=== PATIENT | male | born 1990 | race Caucasian/White ===

== ENCOUNTER 2016-12-04 17:17 | Emergency (ER) | payer MEDICAID ==
[2016-12-04 17:23] VITALS: BMI 24.3
[2016-12-04 17:26] VITALS: BP 101/69; PULSE 71; RESP 16; TEMP 98.3
--- NOTE | 2016-12-04 18:52 | US ---
HISTORY: right testicle s/p trauma TECHNIQUE: Realtime sonography through the scrotum with color and doppler flow. COMPARISON: None Available. FINDINGS: RIGHT TESTICLE: Measures 4.4 x 2.3 x 2.4 cm. Homogeneous echotexture. Blood flow is demonstrated. RIGHT EPIDIDYMIS: Epididymal head measures approximately 0.9 x 0.7 x 0.8 cm. LEFT TESTICLE: Measures 4.6 x 2.1 x 2.7 cm. Homogeneous echotexture. Blood flow is demonstrated. LEFT EPIDIDYMIS: Epididymal head measures approximately 0.9 x 0.8 x 0.7 cm. HYDROCELE: Bilateral small hydroceles. VARICOCELE: Bilateral varicoceles. OTHER FINDINGS: None. IMPRESSION: Bilateral small hydroceles. Bilateral varicoceles.
--- NOTE | 2016-12-04 19:09 | ED PDOC ---
Arrival/HPI - General Chief Complaint: Male Genitourinary Time Seen by Provider: 12/04/16 17:29 Historian: Patient - History of Present Illness Narrative History of Present Illness (Text): 12/04/16 19:12 26yo male present to ED with complaint of right testicle pain. States he was accidentally kicked on his right sided testicle yesterday while soccer. Came to ED secondary to the persistent pain. States pain is moderately achy. Denies nausea, vomiting, abdominal pain, fever, chills, any other complaint. Past Medical History - Provider Review Nursing Documentation Reviewed: Yes - Past History Past History: No Previous - Infectious Disease Hx of Infectious Diseases: None - Tetanus Immunization Tetanus Immunization: Unknown - Past Medical History Past Medical History: No Previous - Psychiatric Hx Psychophysiologic Disorder: No Hx Anxiety: No Hx Bipolar Disorder: No Hx Depression: No Hx Emotional Abuse: No Hx Hallucinations: No Hx Panic Disorder: No Hx Post Traumatic Stress Disorder: No Hx Psychosis: No Hx Physical Abuse: No Hx Schizophrenia: No Hx Sexual Abuse: No Hx Substance Use: No - Past Surgical History Past Surgical History: No Previous - Surgical History Other/Comment: nose sx 2005 - Anesthesia Hx Anesthesia: Yes Hx Anesthesia Reactions: No Hx Malignant Hyperthermia: No - Suicidal Assessment Feels Threatened In Home Enviroment: No Family/Social History - Physician Review Nursing Documentation Reviewed: Yes Family/Social History: Unknown Family HX Smoking Status: Current Some Days Smoker Hx Alcohol Use: No Hx Substance Use: No Hx Substance Use Treatment: No Allergies/Home Meds Allergies/Adverse Reactions: Allergies No Known Allergies Allergy (Verified 12/04/16 17:23) Home Medications: Home Meds Medication Instructions Recorded Confirmed Sheen-Min 1 tab PO DAILY 12/04/16 12/04/16 Review of Systems - Physician Review All systems were reviewed & negative as marked: Yes - Review of Systems Constitutional: Normal Eyes: Normal ENT: Normal Respiratory: Normal Cardiovascular: Normal Gastrointestinal: Normal Genitourinary Male: Other (Right testicle pain) Musculoskeletal: Normal Skin: Normal Neurological: Normal Endocrine: Normal Hemo/Lymphatic: Normal Psychiatric: Normal Physical Exam Vital Signs Reviewed: Yes Vital Signs Temp Pulse Resp BP Pulse Ox 12/04/16 17:23 98.3 F 71 16 101/69 96 Temperature: Afebrile Blood Pressure: Normal Pulse: Regular Respiratory Rate: Normal Appearance: Positive for: Well-Appearing, Non-Toxic, Comfortable Pain Distress: None Mental Status: Positive for: Alert and Oriented X 3 - Systems Exam Head: Present: Atraumatic, Normocephalic Pupils: Present: PERRL Extroacular Muscles: Present: EOMI Conjunctiva: Present: Normal Mouth: Present: Moist Mucous Membranes Neck: Present: Normal Range of Motion Respiratory/Chest: Present: Clear to Auscultation, Good Air Exchange. No: Respiratory Distress, Accessory Muscle Use Cardiovascular: Present: Regular Rate and Rhythm, Normal S1, S2. No: Murmurs Abdomen: Present: Normal Bowel Sounds. No: Tenderness, Distention, Peritoneal Signs Genitourinary Male: Present: Testicle Tenderness (Right testicle). No: Erythema , Testicle Swelling Back: Present: Normal Inspection Upper Extremity: Present: Normal Inspection. No: Cyanosis, Edema Lower Extremity: Present: Normal Inspection. No: Edema Neurological: Present: GCS=15, CN II-XII Intact, Speech Normal Skin: Present: Warm, Dry, Normal Color. No: Rashes Psychiatric: Present: Alert, Oriented x 3, Normal Insight, Normal Concentration Medical Decision Making ED Course and Treatment: 12/04/16 19:16 Testicle US - IMPRESSION: Bilateral small hydroceles. Bilateral varicoceles. PT was comfortable in ED. He was noted to be having conversation on phone smiling. US report was DW the pt. He was DC home with a rx of Ibuprofen and referred to a Urologist. TRT ED for any new or worsening symptoms. - RAD Interpretation Radiology Orders: 12/04/16 17:29 TESTES DUPLEX COMPLETE [US] Stat - Medication Orders Current Medication Orders: Discontinued Medications Ibuprofen (Motrin Tab) 600 mg PO STAT STA Stop: 12/04/16 17:33 Last Admin: 12/04/16 18:01 Dose: 600 mg Disposition/Present on Arrival - Present on Arrival Any Indicators Present on Arrival: No History of DVT/PE: No History of Uncontrolled Diabetes: No Urinary Catheter: No History of Decub. Ulcer: No History Surgical Site Infection Following: None - Disposition Have Diagnosis and Disposition been Completed?: Yes Diagnosis: Testicle pain Disposition: HOME/ ROUTINE Disposition Time: 19:10 Patient Plan: Discharge Condition: STABLE Discharge Instructions (ExitCare): Testicle Pain (ED) Additional Instructions: Follow up with your Doctor/Urologist Return to ED for any new or worsening symptoms Prescriptions: Ibuprofen [Motrin Tab] 600 mg PO Q6 #20 tab Referrals: David Griffith MD [Staff Provider] - Follow up with primary
[2016-12-04 19:14] VITALS: O2SAT 98
== END 2016-12-04 19:14 | disposition home or self-care (01) ==
LOC: ED 17:17
DX: N50.811 Right testicular pain (principal)

== ENCOUNTER 2017-11-21 22:45 | Emergency (ER) | payer MEDICAID, OTHER ==
[2017-11-21 22:45] VITALS: BMI 24.3
[2017-11-21 23:03] VITALS: BP 122/86; PULSE 63; RESP 18; TEMP 97.5; O2SAT 97
--- NOTE | 2017-11-21 23:17 | ED PDOC ---
Arrival/HPI - General Chief Complaint: Groin Pain Time Seen by Provider: 11/21/17 23:00 - History of Present Illness Narrative History of Present Illness (Text): 27 y/o M c no PMHx p/w L testicular pain x 2 weeks. Pain is intermittent, moderate in severity, worse when walking. Patient states he was accidentally kicked in the groin while playing soccer. Denies bleeding, abnormal discharge, swelling. Past Medical History - Past History Past History: No Previous - Infectious Disease Hx of Infectious Diseases: None - Tetanus Immunization Tetanus Immunization: Unknown - Past Medical History Past Medical History: No Previous - Psychiatric Hx Psychophysiologic Disorder: No Hx Anxiety: No Hx Bipolar Disorder: No Hx Depression: No Hx Emotional Abuse: No Hx Hallucinations: No Hx Panic Disorder: No Hx Post Traumatic Stress Disorder: No Hx Psychosis: No Hx Physical Abuse: No Hx Schizophrenia: No Hx Sexual Abuse: No Hx Substance Use: No - Past Surgical History Past Surgical History: No Previous - Surgical History Other/Comment: nose sx 2005 - Anesthesia Hx Anesthesia: Yes Hx Anesthesia Reactions: No Hx Malignant Hyperthermia: No - Suicidal Assessment Feels Threatened In Home Enviroment: No Family/Social History Family/Social History: No Known Family HX Smoking Status: Current Some Days Smoker Hx Alcohol Use: Yes Frequency of alcohol use: Socially Hx Substance Use: No Hx Substance Use Treatment: No Allergies/Home Meds Allergies/Adverse Reactions: Allergies No Known Allergies Allergy (Verified 12/04/16 17:23) Home Medications: Home Meds Medication Instructions Recorded Confirmed No Known Home Med 11/22/17 11/22/17 Review of Systems - Physician Review All systems were reviewed & negative as marked: Yes - Review of Systems Constitutional: absent: Fevers Gastrointestinal: absent: Vomiting Physical Exam - Physical Exam Narrative Physical Exam (Text): Gen: NAD Head: NC Eyes: No icterus ENT: MMM Neck: Supple Chest: No tenderness CV: Regular rate Resp: No accessory muscle use Abd: Soft, NT, ND : Penis without swelling or ecchymosis, no discharge. Bilateral testicles normal in size. L testicular tenderness, mild. Skin: No rash Neuro: Alert Extremities: No edema Vital Signs Temp Pulse Resp BP Pulse Ox 11/21/17 23:00 97.5 F L 63 18 122/86 97 Medical Decision Making ED Course and Treatment: Differential includes likely contusion vs unlikely torsion. Will US to evaluate for flow. Patient declined pain medication. US Scrotum EXAM DATE/TIME: 11/21/2017 11:13 PM Dictated and Authenticated by: Shanon Chang MD 11/22/2017 12:57 AM Eastern Time ([place] & [place]) IMPRESSION: No acute findings. - RAD Interpretation Radiology Orders: 11/21/17 23:13 TESTES DUPLEX COMPLETE [US] Stat Disposition/Present on Arrival - Present on Arrival Any Indicators Present on Arrival: No History of DVT/PE: No History of Uncontrolled Diabetes: No Urinary Catheter: No History of Decub. Ulcer: No History Surgical Site Infection Following: None - Disposition Have Diagnosis and Disposition been Completed?: Yes Diagnosis: Testicular pain, left Disposition: HOME/ ROUTINE Disposition Time: 01:00 Patient Plan: Discharge Condition: STABLE Discharge Instructions (ExitCare): Testicular Injury Referrals: Noah Napier MD [Primary Care Provider] - Follow up with primary Forms: [employer] (Ukrainian)
--- NOTE | 2017-11-22 00:57 | US ---
EXAM: US Scrotum EXAM DATE/TIME: 11/21/2017 11:13 PM CLINICAL HISTORY: 27 years old, male; Pain; Groin pain; Additional info: Struck in groin TECHNIQUE: Real-time ultrasound of the scrotum with color Doppler and image documentation. COMPARISON: US - TESTES DUPLEX COMPLETE 2016-12-04 18:22 FINDINGS: The right testicle measures 5 x 3 x 3 cm. The left testicle measures 5 x 2 x 3 cm. The testicles are homogeneous bilaterally. Symmetric color flow and arterial waveforms are demonstrated to the testicles bilaterally (no torsion). The epidiymis are normal bilaterally. There are small bilateral hydroceles similar to prior. IMPRESSION: No acute findings.
== END 2017-11-22 01:20 | disposition home or self-care (01) ==
LOC: ED 22:45
DX: N50.812 Left testicular pain (principal)

== ENCOUNTER 2018-05-13 12:34 | Emergency (ER) | payer MEDICAID ==
[2018-05-13 12:34] VITALS: BMI 24.3
[2018-05-13 12:40] VITALS: RESP 18
--- NOTE | 2018-05-13 13:10 | ED PDOC ---
Arrival/HPI - General Chief Complaint: Abdominal Pain Time Seen by Provider: 05/13/18 12:35 Historian: Patient - History of Present Illness Narrative History of Present Illness (Text): 05/13/18 13:02 Patient is a 28 year old male, with no significant past medical history, presents to the Emergency Department complaining of discomfort to his groin region for past "2-3 months". Patient states he was kicked in his testicles while playing soccer 3 months ago sustaining discomfort to the area and was evaluated in the Emergency Department the following day. He reports persistent intermittent pain in his upper inner thighs that radiates to his groin area for past several weeks. Denies new recent trauma. Denies testicular swelling or redness. Denies difficulty urinating. Denies hematuria. Denies swelling or masses. Denies abdominal pain or rash. Denies diarrhea or bloody stools. Denies upper abdominal apin. Patient informs worsening symptoms with running or playing soccer prompting him to present to the ED for evaluation. Time/Duration: < week Symptom Onset: Gradual Symptom Course: Unchanged Quality: Aching Activities at Onset: Light Context: Home Past Medical History - Provider Review Nursing Documentation Reviewed: Yes - Past History Past History: No Previous - Infectious Disease Hx of Infectious Diseases: None - Tetanus Immunization Tetanus Immunization: Unknown - Past Medical History Past Medical History: No Previous - Psychiatric Hx Psychophysiologic Disorder: No Hx Anxiety: No Hx Bipolar Disorder: No Hx Depression: No Hx Emotional Abuse: No Hx Hallucinations: No Hx Panic Disorder: No Hx Post Traumatic Stress Disorder: No Hx Psychosis: No Hx Physical Abuse: No Hx Schizophrenia: No Hx Sexual Abuse: No Hx Substance Use: No - Past Surgical History Past Surgical History: No Previous - Surgical History Other/Comment: nose sx 2005 - Anesthesia Hx Anesthesia: Yes Hx Anesthesia Reactions: No Hx Malignant Hyperthermia: No - Suicidal Assessment Feels Threatened In Home Enviroment: No Family/Social History - Physician Review Nursing Documentation Reviewed: Yes Family/Social History: No Known Family HX Smoking Status: Current Some Days Smoker Hx Alcohol Use: No Hx Substance Use: No Hx Substance Use Treatment: No Allergies/Home Meds Allergies/Adverse Reactions: Allergies No Known Allergies Allergy (Verified 05/13/18 12:41) Review of Systems - Review of Systems Constitutional: absent: Fevers Respiratory: absent: SOB, Cough Cardiovascular: absent: Chest Pain, [place] Gastrointestinal: absent: Abdominal Pain, Stool Changes, Constipation, Diarrhea, Nausea, Vomiting, Appetite Changes, Hematochezia, Hematemesis, Anorexia Genitourinary Male: Other (testicular discomfort). absent: Dysuria, Hematuria, Urinary Output Changes Musculoskeletal: absent: Back Pain, Neck Pain Skin: absent: Rash, Skin Lesions Neurological: absent: Headache, Dizziness, Focal Weakness Endocrine: absent: Polyuria Hemo/Lymphatic: absent: Easy Bleeding Psychiatric: absent: Anxiety, Depression Physical Exam - Physical Exam Narrative Physical Exam (Text): 05/13/18 13:13 Head: Atraumatic. Normocephalic. Eyes: PERRL. EOMI. Conjunctivae are not pale. ENT: Mucous membranes are moist and intact. Oropharynx is clear and symmetric. Neck: Supple. Full ROM. No JVD. No lymphadenopathy. Cardiovascular: Regular rate. Regular rhythm. No murmurs, rubs, or gallops. Distal pulses are 2+ and symmetric. Pulmonary/Chest: No evidence of respiratory distress. Clear to auscultation bilaterally. No wheezing, rales or rhonchi. Abdominal: Soft and non-distended. There is no tenderness. No rebound, guarding, or rigidity. No organomegaly. Good bowel sounds. No suprapubic pain. No inguinal masses or hernias palpated. Rectal: no gross bleeding noted Genitourinary: no testicular pain or masses palpated, positive cremaster reflex, no penile discharge or erythema Back: No CVA tenderness. No midline back tenderness. Extremities: No edema. No cyanosis. No clubbing. Full range of motion in all extremities. No calf tenderness. He has mild pain on palpation of left and right medial upper thigh with no rash or edema or erythema. Pain not reproduced with straight leg testing, but is reproducible with rotation externally of hips. Skin: Skin is warm and dry. No petechiae. No purpura. Neurological: Alert, awake, and oriented. No saddle anesthesia. Motor and sensory exam intact. Normal gait. Psychiatric: Good eye contact. Normal interaction, affect, and behavior. Vital Signs Reviewed: Yes Vital Signs Temp Pulse Resp BP Pulse Ox 05/13/18 12:39 97.6 F 84 18 116/72 98 Temperature: Afebrile Blood Pressure: Normal Pulse: Regular Respiratory Rate: Normal Appearance: Positive for: Well-Appearing, Non-Toxic, Comfortable Pain Distress: None Mental Status: Positive for: Alert and Oriented X 3 Medical Decision Making ED Course and Treatment: 05/13/18 13:13 Impression: 28 year old male presents to the Emergency Department complaining of groin discomfort. Plan: -- US of Testes -- Reassess and disposition Prior Visits: Notes and results from previous visits were reviewed. Progress Notes: On exam, patient with no palpable hernias, no palpable testicular pain. No rash. No neuro deficits. Denies abdominal pain. Denies urinary symptoms. Denies prior hx of STD. Denies penile discharge. EXAM IS NOT CONSISTENT WITH TORSION. Ultrasound reveals bilateral hydroceles, this was noted on prior ultrasounds. As he has no palpable pain, no neurovascular deficits, the patient will be discharged although instructed close follow-up with urologist. Ultrasound findings reviewed with patient in laymen's terms. 05/13/18 17:43 - RAD Interpretation Narrative RAD Interpretations (Text): 05/13/18 14:33 US of Testes reviewed by radiologist, shows: FINDINGS: RIGHT TESTICLE: Measures 4.7 x 2.2 x 3.0 cm. Normal echotexture and flow. RIGHT EPIDIDYMIS: Epididymal head measures 0.8 x 0.7 x 0.9 cm. Grossly unremarkable appearance with normal flow. LEFT TESTICLE: Measures 4.6 x 2.2 x 2.9 cm. Normal echotexture and flow. LEFT EPIDIDYMIS: Epididymal head measures 0.2 x 0.9 x 1.0 cm. Grossly unremarkable appearance with normal flow. HYDROCELE: Minimal bilateral hydroceles are identified greater the right than left upper hemiscrotum. Left-sided hydroceles mildly complicated by septa. VARICOCELE: None. OTHER FINDINGS: None. IMPRESSION: 1. No cyst or solid testicular mass bilaterally or evidence of torsion. 2. Very small bilateral hydroceles greater the left and right hemiscrotum with mild complication at the left side. Needle Maker: Radiologist - Scribe Statement The provider has reviewed the documentation as recorded by the Scribdomitila Arriaza. All medical record entries made by the Scribe were at my direction and personally dictated by me. I have reviewed the chart and agree that the record accurately reflects my personal performance of the history, physical exam, medical decision making, and the department course for this patient. I have also personally directed, reviewed, and agree with the discharge instructions and disposition. Disposition/Present on Arrival - Present on Arrival Any Indicators Present on Arrival: No History of DVT/PE: No History of Uncontrolled Diabetes: No Urinary Catheter: No History of Decub. Ulcer: No History Surgical Site Infection Following: None - Disposition Have Diagnosis and Disposition been Completed?: Yes Diagnosis: Groin pain, Hydrocele Disposition: HOME/ ROUTINE Disposition Time: 14:40 Patient Plan: Discharge Patient Problems: Current Active Problems Problem Status Onset Groin pain Acute Hydrocele Acute Condition: GOOD Discharge Instructions (ExitCare): Groin Strain, Hydrocele, Testicular Injury Additional Instructions: No sports or strenuous activity until cleared by specialist. For any testicle swelling or pain, any difficulty urinating, any vomiting or diarrhea, any bloody urine or stool, any numbness or weakness, any back pain, any rash, any persistent or worsening of any symptoms, get rechecked. You MUST follow-up with a urologist for "hydrocele" noted on your ultrasound. Prescriptions: Naproxen [Naprosyn Tab] 250 mg PO BID PRN #10 tab PRN Reason: Pain, Mild (1-3) Referrals: Ashish Jerez MD [Staff Provider] - Follow up with primary Noah Napier MD [Primary Care Provider] - Follow up with primary Forms: [employer] (Japanese)
--- NOTE | 2018-05-13 14:19 | US ---
Date of service: 05/13/2018 HISTORY: bilat testical pain months, greater on left TECHNIQUE: Realtime sonography through the scrotum with color and doppler flow. COMPARISON: None Available. FINDINGS: RIGHT TESTICLE: Measures 4.7 x 2.2 x 3.0 cm. Normal echotexture and flow. RIGHT EPIDIDYMIS: Epididymal head measures 0.8 x 0.7 x 0.9 cm. Grossly unremarkable appearance with normal flow. LEFT TESTICLE: Measures 4.6 x 2.2 x 2.9 cm. Normal echotexture and flow. LEFT EPIDIDYMIS: Epididymal head measures 0.2 x 0.9 x 1.0 cm. Grossly unremarkable appearance with normal flow. HYDROCELE: Minimal bilateral hydroceles are identified greater the right than left upper hemiscrotum. Left-sided hydroceles mildly complicated by septa. VARICOCELE: None. OTHER FINDINGS: None. IMPRESSION: 1. No cyst or solid testicular mass bilaterally or evidence of torsion. 2. Very small bilateral hydroceles greater the left and right hemiscrotum with mild complication at the left side.
[2018-05-13 15:23] LABS: URINE BILIRUBIN NEGATIVE (NEGATIVE); URINE BLOOD NEGATIVE (NEGATIVE); URINE GLUCOSE (UA) NEGATIVE (NEGATIVE); URINE LEUKOCYTE ESTERASE NEGATIVE Leu/uL (NEGATIVE); URINE PROTEIN NEGATIVE mg/dL (<30 mg/dL); URINE UROBILINOGEN 0.2 E.U./dL (<1 E.U./dL)
[2018-05-13 15:29] LABS: URINE APPEARANCE CLEAR (CLEAR); URINE COLOR YELLOW (YELLOW)
[2018-05-13 19:45] VITALS: BP 121/70; PULSE 72; TEMP 97.8; O2SAT 99
== END 2018-05-13 15:50 | disposition home or self-care (01) ==
LOC: ED 12:34
DX: N43.3 Hydrocele, unspecified (principal); R10.30 Lower abdominal pain, unspecified